=== PATIENT | female | born 1970 | race Caucasian/White ===

== ENCOUNTER 2017-03-08 00:13 | Inpatient (IN) | payer OTHER ==
[~2017-03-08] VITALS: Ht 167.6 cm; Wt 78.5 kg
[2017-03-08] MEDS ORDERED: ONDANSETRON HCL 4MG/2ML VIAL IV STA (00:51)
[2017-03-08] MEDS ORDERED: MORPHINE SULFATE 4 MG/ML CPJ (NOT FOR IM USE) IV STA (00:51)
[2017-03-08] MEDS ORDERED: ASPIRIN 81MG TABLET PO ONE (01:00)
[2017-03-08] MEDS ORDERED: NITROGLYCERIN OINT 1GM/INCH UDPKT TD ONE (01:00)
[2017-03-08 01:22] LABS: BASOPHILS % 0.6 % (0.0-2.0); EOSINOPHILS % 1.8 % (0.0-5.0); HEMATOCRIT. 40.8 % (36.0-48.0); HEMOGLOBIN. 13.8 g/dL (12.0-16.0); LYMPHOCYTES % 27.1 % (20.0-50.0); MEAN CORPUSCULAR HEMOGLOBIN 30.8 pg (28.0-32.0); MEAN CORPUSCULAR VOLUME 91.1 fL (81.0-99.0); MEAN PLATELET VOLUME 7.4 fl (7.4-10.4); MONOCYTES % 8.2 % (2.0-8.0); NEUTROPHILS % 62.3 % (40.0-76.0); PLATELET 338 x1000/uL (130-400); RED BLOOD CELL COUNT 4.48 mill/uL (4.2-5.4); RED CELL DISTRIBUTION WIDTH 13.4 % (11.6-14.6)
[2017-03-08 01:29] LABS: D-DIMER 0.22 mg/L FEU (<0.50); PARTIAL THROMBOPLASTIN TIME 26.8 sec (23.4-31.0); PROTHROMBIN TIME 10.6 sec (9.4-11.6)
[2017-03-08 01:34] LABS: CARBON DIOXIDE 28 mEq/L (21-32); CHLORIDE 104 mEq/L (98-107); ETHANOL BLOOD < 10 mg/dL; TROPONIN I < 0.02 ng/mL (0.00-0.04)
[2017-03-08 01:38] LABS: HCG SCREEN NEGATIVE
[2017-03-08 02:26] LABS: *AMPHETAMINES SCREEN URINE NEGATIVE (NEGATIVE); *BARBITURATES SCREEN URINE NEGATIVE (NEGATIVE); *BENZODIAZEPINES SCREEN URINE NEGATIVE (NEGATIVE); *COCAINE SCREEN URINE NEGATIVE (NEGATIVE); CANNABINOID URINE SCREEN NEGATIVE (NEGATIVE); METHADONE URINE SCREEN NEGATIVE (NEGATIVE); OPIATES URINE SCREEN NEGATIVE (NEGATIVE); PHENCYCLIDINE URINE SCREEN NEGATIVE (NEGATIVE)
[2017-03-08] MEDS ORDERED: ACETAMINOPHEN 325MG TABLET PO ONE (05:45)
[2017-03-08 07:39] LABS: T4 FREE 0.92 ng/dL (0.76-1.46)
[2017-03-08 10:00] VITALS: BP 113/87
[2017-03-08 10:15] VITALS: BP 113/87
[2017-03-08] MEDS ORDERED: ASCO-339 PO (10:50)
[2017-03-08] MEDS ORDERED: FERR325T6 PO (10:53)
[2017-03-08] MEDS ORDERED: OMEP40CA34 PO (10:53)
[2017-03-08 11:00] VITALS: BP 113/87
[2017-03-08 12:00] VITALS: BP 127/77
[2017-03-08] MEDS ORDERED: REGADENOSON 0.4 MG/5 ML IV ONE (12:00)
[2017-03-08] MEDS: ASPIRIN 81MG TABLET PO SCH (12:53)
[2017-03-08] MEDS: ENOXAPARIN 40MG/0.4ML SYR SUBCUT SCH (12:55)
[2017-03-08 16:00] VITALS: BP 109/76
[2017-03-08 16:47] LABS: CREATINE KINASE MB FRACTION 0.8 ng/mL (0.5-3.6)
[2017-03-08 20:00] VITALS: BP 110/77
[2017-03-09] VITALS: BP 111/73
[2017-03-09 00:57] LABS: CREATINE KINASE MB FRACTION 1.1 ng/mL (0.5-3.6)
[2017-03-09 04:00] VITALS: BP 107/72
[2017-03-09 08:00] VITALS: BP 115/86
[2017-03-09] MEDS: ENOXAPARIN 40MG/0.4ML SYR SUBCUT SCH (09:00)
[2017-03-09] MEDS: ASPIRIN 81MG TABLET PO SCH (09:00)
[2017-03-09] MEDS ORDERED: REGADENOSON 0.4 MG/5 ML IV ONE (10:10)
[2017-03-09 10:19] LABS: CREATINE KINASE MB FRACTION 0.9 ng/mL (0.5-3.6)
[2017-03-09 12:00] VITALS: BP 117/76
[2017-03-09 13:22] VITALS: BP 117/76
== END 2017-03-09 16:19 | disposition home or self-care (01) | DRG 243 ==
LOC: ER 00:13 → 7WST 02:38
PROVIDERS: ADMIT Family Medicine; ATTEND Family Medicine
DX: K21.9 Gastro-esophageal reflux disease without esophagitis (principal); E83.51 Hypocalcemia; E78.5 Hyperlipidemia, unspecified; D50.9 Iron deficiency anemia, unspecified; Z88.8 Allergy status to other drugs, medicaments and biological substances; Z82.49 Family history of ischemic heart disease and other diseases of the circulatory system; Z79.899 Other long term (current) drug therapy
CPT/HCPCS: 36415; 71010; 78452; 80053; 80061; 80305; 82550; 82553; 83036; 83690; 83880; 84439; 84443; 84484; 84703; 85025; 85379; 85610; 85730; 93005; 93017; 93306; 96374; 96375; 99285; A9500; G0482; J1650; J2270; J2405; J2785

== ENCOUNTER 2018-05-13 13:53 | Emergency (ER) | payer MEDICAID, OTHER ==
[~2018-05-13] VITALS: Ht 165.1 cm; Wt 79.0 kg
[~2018-05-13 13:53] MED LIST: ASCO-339 PO; FERR325T6 PO; OMEP40CA34 PO
[2018-05-13 16:13] LABS: BASOPHILS % 0.4 % (0.0-2.0); EOSINOPHILS % 0.9 % (0.0-5.0); HEMATOCRIT. 40.8 % (36.0-48.0); HEMOGLOBIN. 14.2 g/dL (12.0-16.0); LYMPHOCYTES % 35.9 % (20.0-50.0); MEAN CORPUSCULAR HEMOGLOBIN 29.8 pg (28.0-32.0); MEAN CORPUSCULAR VOLUME 85.8 fL (81.0-99.0); MEAN PLATELET VOLUME 7.4 fl (7.4-10.4); MONOCYTES % 6.9 % (2.0-8.0); NEUTROPHILS % 55.9 % (40.0-76.0); PLATELET 362 x1000/uL (130-400); RED BLOOD CELL COUNT 4.76 mill/uL (4.2-5.4); RED CELL DISTRIBUTION WIDTH 14.3 % (11.6-14.6)
[2018-05-13 16:15] LABS: CHLORIDE 103 mEq/L (98-107)
[2018-05-13] MEDS ORDERED: SODIUM CHLORIDE 0.9% 1,000 ML IV ONE (16:46)
[2018-05-13 16:48] LABS: CLARITY URINE CLEAR (CLEAR); COLOR URINE YELLOW (YELLOW); KETONES URINE NEGATIVE (NEGATIVE); LEUKOCYTE ESTERASE URINE TRACE (NEGATIVE); NITRITE URINE NEGATIVE (NEGATIVE); OCCULT BLOOD URINE NEGATIVE (NEGATIVE); PH URINE 7.5 (4.5-8.0); PROTEIN URINE NEGATIVE (NEGATIVE); SPECIFIC GRAVITY URINE 1.005 (1.005-1.030); UROBILINOGEN URINE 0.2 E.U./dL (0.2-1.0)
[2018-05-13 17:01] LABS: *AMPHETAMINES SCREEN URINE NEGATIVE (NEGATIVE); *BARBITURATES SCREEN URINE NEGATIVE (NEGATIVE); *BENZODIAZEPINES SCREEN URINE NEGATIVE (NEGATIVE); *COCAINE SCREEN URINE NEGATIVE (NEGATIVE); METHADONE URINE SCREEN NEGATIVE (NEGATIVE)
[2018-05-13 17:03] LABS: CANNABINOID URINE SCREEN NEGATIVE (NEGATIVE); OPIATES URINE SCREEN NEGATIVE (NEGATIVE); PHENCYCLIDINE URINE SCREEN NEGATIVE (NEGATIVE)
[2018-05-13] MEDS ORDERED: MECLIZINE 25MG TABLET PO ONE (17:15)
[2018-05-13] MEDS ORDERED: CEPHALEXIN 250MG CAPSULE PO ONE (19:00)
[2018-05-13 19:04] VITALS: BP 148/82
== END 2018-05-13 19:28 | disposition home or self-care (01) ==
LOC: ER 13:53
DX: R42 Dizziness and giddiness (principal); N39.0 Urinary tract infection, site not specified; E86.0 Dehydration; K21.9 Gastro-esophageal reflux disease without esophagitis; D64.9 Anemia, unspecified; Z88.8 Allergy status to other drugs, medicaments and biological substances
CPT/HCPCS: 36415; 71045; 80053; 80305; 81003; 81025; 84484; 85025; 93005; 96360; 99284; J7030; J8597

== ENCOUNTER 2018-10-28 23:53 | Emergency (ER) | payer MEDICAID ==
[~2018-10-28] VITALS: Ht 167.6 cm; Wt 80.0 kg
[2018-10-29 01:26] LABS: CHLORIDE 109 mEq/L (98-107)
[2018-10-29 01:29] LABS: BASOPHILS % 0.5 % (0.0-2.0); EOSINOPHILS % 0.3 % (0.0-5.0); HEMATOCRIT. 35.4 % (36.0-48.0); LYMPHOCYTES % 26.9 % (20.0-50.0); MEAN CORPUSCULAR HEMOGLOBIN 28.7 pg (28.0-32.0); MEAN CORPUSCULAR VOLUME 84.2 fL (81.0-99.0); MEAN PLATELET VOLUME 7.3 fl (7.4-10.4); MONOCYTES % 7.2 % (2.0-8.0); NEUTROPHILS % 65.1 % (40.0-76.0); PLATELET 343 x1000/uL (130-400); RED CELL DISTRIBUTION WIDTH 14.4 % (11.6-14.6)
[2018-10-29 01:35] LABS: T4 FREE 1.01 ng/dL (0.76-1.46)
[2018-10-29] MEDS ORDERED: MORPHINE SULFATE 4 MG/ML CPJ (NOT FOR IM USE) IV NR (03:15)
[2018-10-29] MEDS ORDERED: NITROGLYCERIN 0.4MG TABLET SL SL NR (03:15)
[2018-10-29 06:09] VITALS: BP 136/75
== END 2018-10-29 06:25 | disposition home or self-care (01) ==
LOC: ER 23:53 → CANBEDREQ 10-29 06:36
DX: R00.2 Palpitations (principal); R20.0 Anesthesia of skin; K21.9 Gastro-esophageal reflux disease without esophagitis; Z88.1 Allergy status to other antibiotic agents; Z88.8 Allergy status to other drugs, medicaments and biological substances; Z98.890 Other specified postprocedural states
CPT/HCPCS: 36415; 71045; 80053; 81025; 83880; 84439; 84443; 84484; 85025; 93005; 96374; 99284; J2270; Z7610

== ENCOUNTER 2019-08-28 15:35 | Emergency (ER) | payer MEDICAID ==
[~2019-08-28] VITALS: Ht 167.6 cm; Wt 79.0 kg
[~2019-08-28 15:35] MED LIST changes: +OMEP40CA12 PO; -OMEP40CA34 PO
[2019-08-28] MEDS ORDERED: ACETAMINOPHEN 325MG TABLET PO STA (16:31)
[2019-08-28] MEDS ORDERED: IBUPROFEN 600MG TABLET PO STA (16:31)
[2019-08-28 18:05] VITALS: BP 124/89
== END 2019-08-28 18:06 | disposition home or self-care (01) ==
LOC: ER 15:35
DX: B34.9 Viral infection, unspecified (principal); D64.9 Anemia, unspecified; Z79.899 Other long term (current) drug therapy; Z88.8 Allergy status to other drugs, medicaments and biological substances
CPT/HCPCS: 71045; 81025; 99283